=== PATIENT | female | born 1990 | race Caucasian/White ===

== ENCOUNTER 2016-10-24 21:12 | Emergency (ER) | payer SELFPAY ==
[~2016-10-24] VITALS: Ht 167.6 cm; Wt 63.5 kg
[~2016-10-24 21:12] MED LIST: IBUP-1060 PO; METR500T PO; SULF1TAB24 PO
[2016-10-24 21:42] LABS: BILIRUBIN,URINE NEGATIVE (NEG); GLUCOSE,URINE NEGATIVE (NEG); NITRITE,URINE NEGATIVE (NEG); PH,URINE 5.5; PROTEIN,URINE NEGATIVE (NEG-TRACE); UROBILINOGEN,URINE 0.2 mg/dL (0.2 mg/dL)
[2016-10-24 21:53] LABS: BACTERIA,URINE FEW /HPF (0-FEW); SQUAMOUS EPITHELIAL CELL,UR FEW /LPF
[2016-10-24] MEDS: IV NORMAL SALINE 1000ML BAG 1,000 ML IV SCH ×2 (22:20→23:26)
[2016-10-24 22:22] LABS: BASO % 0 % (0-3); EOS % 0 % (0-3); HEMATOCRIT 41.5 % (36.0-47.0); HEMOGLOBIN 14.2 g/dL (12.0-15.5); LYMPH # 0.5 x10^3/uL (1.0-4.8); LYMPH % 5 % (24-48); MEAN CORPUSCULAR HEMOGLOBIN 32 pg (25-35); MEAN CORPUSCULAR HGB CONC 34 g/dL (31-37); MEAN CORPUSCULAR VOLUME 92 fL (79-100); MONO % 8 % (0-9); NEUT % 87 % (31-73); PLATELET COUNT 161 x10^3/uL (140-400); RED BLOOD COUNT 4.51 x10^6/uL (3.50-5.40); RED CELL DISTRIBUTION WIDTH 12.6 % (11.5-14.5); WHITE BLOOD COUNT 10.3 x10^3/uL (4.0-11.0)
[2016-10-24 22:42] LABS: CALCIUM 7.7 mg/dL (8.5-10.1); CREATININE 0.9 mg/dL (0.6-1.0); GFR 75.1
[2016-10-24 22:47] LABS: ALBUMIN 3.9 g/dL (3.4-5.0); ALBUMIN/GLOBULIN RATIO 1.1 (1.0-1.7); TOTAL BILIRUBIN 1.3 mg/dL (0.2-1.0); TOTAL PROTEIN 7.3 g/dL (6.4-8.2)
[2016-10-24 22:59] LABS: PLT ESTIMATE ADEQUATE (ADEQUATE)
[2016-10-24] MEDS ORDERED: ACETAMINOPHEN 500 MG TABLET PO ONE (23:00)
[2016-10-24] MEDS ORDERED: KETOROLAC 15 MG/ML VIAL. IV ONE (23:30)
[2016-10-24] MEDS ORDERED: IV NORMAL SALINE 1000ML BAG 1,000 ML IV ONE (23:30)
[2016-10-24 23:59] VITALS: BP 107/56
[2016-10-25] MEDS ORDERED: DEXAMETHASONE SOD PHOS 4 MG/ML VIAL IV ONE (01:00)
[2016-10-25] MEDS ORDERED: PHENAZOPYRIDINE 200 MG TABLET. PO ONE (01:00)
[2016-10-25] MEDS ORDERED: CEPHALEXIN 250 MG CAPSULE. PO ONE (01:00)
[2016-10-25] MEDS ORDERED: DEXAMETHASONE SOD PHOS 4 MG/ML VIAL PO ONE (01:15)
[2016-10-25] MEDS ORDERED: PHEN-318 PO (01:22)
[2016-10-25] MEDS ORDERED: CEPH500C PO (01:22)
--- NOTE | 2016-10-25 02:50 | ED.ADGEN ---
Past Medical History Past Medical History: No Pertinent History Past Surgical History: Other Additional Past Surgical Histo: falliopen tube removed Additional Information: PT REPORTS USING NICODERM PATCH. Alcohol Use: None Drug Use: None Adult General Chief Complaint Chief Complaint: FLANK PAIN HPI HPI Patient is a 26 year old woman, with no significant past no history, who presents to the emergency department with a complaint of sore throat, myalgias, flank pain, fever, that began today. Patient denies any nausea or vomiting, is complaining of pain in her "kidneys" bilaterally, also throughout her back and extremities, no neck pain, no headache, no ear pain, noted be febrile at 101 in the ED orally. Patient states that she does have a sick contact her son who was diagnosed with strep throat, denies any recent travel or surgery, any vomiting, any diarrhea, is denying any urinary complaints. Denies any other sick contacts or injuries, any hematuria, any dysuria, any discharge from the vagina, any concerns for STI exposures. Appears uncomfortable and flushed in the emergency department. Review of Systems Review of Systems Constitutional: Fever, no chills. Eyes: Denies change in visual acuity. [] HENT: Denies nasal congestion or sore throat. [] Respiratory: Denies cough or shortness of breath. [] Cardiovascular: Denies chest pain or edema. [] GI: Denies abdominal pain, nausea, vomiting, bloody stools or diarrhea. [] : Denies dysuria. Complaining of bilateral flank pain, also musculoskeletal pain throughout the back and extremities. Musculoskeletal: Musculoskeletal pain to the back and extremities.. [] Integument: Denies rash. [] Neurologic: Denies headache, focal weakness or sensory changes. [] Endocrine: Denies polyuria or polydipsia. [] Lymphatic: Denies swollen glands. [] Psychiatric: Denies depression or anxiety. [] Current Medications Current Medications Current Medications Medications (Trade) Dose Ordered Sig/Jimy Start Time Stop Time Status Last Admin Dose Admin Acetaminophen (Tylenol) 1,000 mg 1X ONCE 10/24/16 23:00 10/24/16 23:01 DC 10/24/16 22:52 1,000 MG Cephalexin HCl (Keflex) 500 mg 1X ONCE 10/25/16 01:00 10/25/16 01:01 DC 10/25/16 01:07 500 MG Dexamethasone Sodium Phosphate (Decadron) 4 mg 1X ONCE 10/25/16 01:15 10/25/16 01:16 DC 10/25/16 01:12 4 MG Ketorolac Tromethamine (Toradol) 10 mg 1X ONCE 10/24/16 23:30 10/24/16 23:31 DC 10/24/16 23:26 10 MG Phenazopyridine HCl (Pyridium) 200 mg 1X ONCE 10/25/16 01:00 10/25/16 01:01 DC 10/25/16 01:07 200 MG Sodium Chloride 1,000 ml @ 1,000 mls/hr 1X ONCE 10/24/16 23:30 10/25/16 00:29 DC 10/24/16 23:26 1,000 MLS/HR Allergies Allergies Allergies Coded Allergies Type Severity Reaction Last Updated Verified No Known Drug Allergies 02/15/14 No Physical Exam Physical Exam Constitutional: Well developed, well nourished, patient is flushed in appearance , appears uncomfortable, complaining of pain in her back. [] HENT: Normocephalic, atraumatic, bilateral external ears normal, oropharynx moist, patient with fragile erythema bilaterally, and exudates noted bilaterally , key in nature, no asymmetry evidence of peritonsillar abscess, no brawny edema or other involvement of the mucosa or tongue or teeth, consistent with pharyngitis, nose normal. [] Eyes: PERRLA, EOMI, conjunctiva normal, no discharge. [] Neck: Normal range of motion, no tenderness, supple, no stridor. [] Cardiovascular:Heart rate regular rhythm, no murmur, S1, S2, no rubs or gallops. [] Lungs & Thorax: Bilateral breath sounds clear to auscultation, no wheezing, rhonchi, rales. No chest wall crepitus or tenderness. Abdomen: Bowel sounds normal, soft, no tenderness, no rebound, rigidity, no guarding, no masses, no pulsatile masses. [] Skin: Warm, dry, no erythema, no rash. [] Back: No midline or paraspinal tenderness, no CVA tenderness. [] Extremities: No tenderness, no cyanosis, no clubbing, ROM intact, no edema. Neurologic: Alert and oriented X 3, normal motor function, normal sensory function, no focal deficits noted. [] Psychologic: Affect normal, judgement normal, mood normal. [] Current Patient Data Vital Signs Vital Signs Date Time Temp Pulse Resp B/P (MAP) Pulse Ox O2 Delivery O2 Flow Rate FiO2 10/24/16 23:59 88 20 107/56 (73) 99 Room Air 10/24/16 21:20 101.9 101.9 Lab Values Laboratory Tests Test 10/24/16 21:00 10/24/16 22:10 Urine Collection Type Unknown Urine Color Yellow Urine Clarity Clear Urine pH 5.5 Urine Specific [place] 1.025 Urine Protein Negative mg/dL (NEG-TRACE) Urine Glucose (UA) Negative mg/dL (NEG) Urine Ketones (Stick) >=80 mg/dL (NEG) Urine Blood Moderate (NEG) Urine Nitrite Negative (NEG) Urine Bilirubin Negative (NEG) Urine Urobilinogen Dipstick 0.2 mg/dL (0.2 mg/dL) Urine Leukocyte Esterase Small (NEG) Urine RBC 11-20 /HPF (0-2) Urine WBC 11-20 /HPF (0-4) Urine Squamous Epithelial Cells Few /LPF Urine Bacteria Few /HPF (0-FEW) Urine Mucus Slight /LPF White Blood Count 10.3 x10^3/uL (4.0-11.0) Red Blood Count 4.51 x10^6/uL (3.50-5.40) Hemoglobin 14.2 g/dL (12.0-15.5) Hematocrit 41.5 % (36.0-47.0) Mean Corpuscular Volume 92 fL (79-100) Mean Corpuscular Hemoglobin 32 pg (25-35) Mean Corpuscular Hemoglobin Concent 34 g/dL (31-37) Red Cell Distribution Width 12.6 % (11.5-14.5) Platelet Count 161 x10^3/uL (140-400) Neutrophils (%) (Auto) 87 % (31-73) H Lymphocytes (%) (Auto) 5 % (24-48) L Monocytes (%) (Auto) 8 % (0-9) Eosinophils (%) (Auto) 0 % (0-3) Basophils (%) (Auto) 0 % (0-3) Neutrophils # (Auto) 9.0 x10^3uL (1.8-7.7) H Lymphocytes # (Auto) 0.5 x10^3/uL (1.0-4.8) L Monocytes # (Auto) 0.8 x10^3/uL (0.0-1.1) Eosinophils # (Auto) 0.0 x10^3/uL (0.0-0.7) Basophils # (Auto) 0.0 x10^3/uL (0.0-0.2) Segmented Neutrophils % 92 % (35-66) H Lymphocytes % 4 % (24-48) L Monocytes % 4 % (0-10) Platelet Estimate Adequate (ADEQUATE) Sodium Level 137 mmol/L (136-145) Potassium Level 4.0 mmol/L (3.5-5.1) Chloride Level 102 mmol/L (98-107) Carbon Dioxide Level 23 mmol/L (21-32) Anion Gap 12 (6-14) Blood Urea Nitrogen 10 mg/dL (7-20) Creatinine 0.9 mg/dL (0.6-1.0) Estimated GFR (Cockcroft-Gault) 75.1 BUN/Creatinine Ratio 11 (6-20) Glucose Level 80 mg/dL (70-99) Calcium Level 7.7 mg/dL (8.5-10.1) L Total Bilirubin 1.3 mg/dL (0.2-1.0) H Aspartate Amino Transferase (AST) 17 U/L (15-37) Alanine Aminotransferase (ALT) 22 U/L (14-59) Alkaline Phosphatase 93 U/L (46-116) Total Protein 7.3 g/dL (6.4-8.2) Albumin 3.9 g/dL (3.4-5.0) Albumin/Globulin Ratio 1.1 (1.0-1.7) Laboratory Tests 10/24/16 22:10 Laboratory Tests 10/24/16 22:10 EKG EKG Not indicated. Radiology/Procedures Radiology/Procedures Not indicated. [] Course & Med Decision Making Course & Med Decision Making Pertinent Labs and Imaging studies reviewed. (See chart for details) Patient's abdomen is soft and nontender, no CVA tenderness noted, focal tenderness or indications for imaging based on examination. Patient noted to be dehydrated, with greater than 80 ketones in the urine, also bacteria and white blood cells, but no nitrates. Patient with myalgias throughout her back, received acetaminophen in the ED, IV fluids, 2 L of normal saline, along with laboratory studies. No leukocytosis noted, no electrolyte abnormalities. as patient initially noted to have some hypotension on reevaluation, blood pressures dropping down to 90s over 60s, for a single measurement, and then increasing to low 100s over 70s, I did discuss admission to the hospital for continued monitoring and treatment. Patient did decline, she states that at this time she is feeling much better. Patient ambulating without difficulty in the ED. Strep swab obtained in the ED and is positive. I did discuss use of intramuscular antibiotics in the ED, for treatment of strep throat, versus a course of ceftriaxone. Patient states to prefer the oral course. Patient given first dose of Keflex in the ED, 500 mg, along with Pyridium which she tolerated without issue. Also received first dose of Pyridium without issue. We did discuss concerning symptoms that would prompt return to the ED, importance of completing antibiotic course, patient is fully immunized. Patient agreeable with plan, given a 10 day course of Keflex, to be taken 4 times daily, along with Pyridium, to continue to use acetaminophen and ibuprofen as directed on the packaging, to stay well-hydrated, and to return to the ED for concerning symptoms as discussed. Patient discharged home in stable condition, with plan as above. Dragon Disclaimer Dragon Disclaimer This electronic medical record was generated, in whole or in part, using a voice recognition dictation system. Departure Impression: Primary Impression: UTI (lower urinary tract infection) Additional Impression: Strep pharyngitis Disposition: 01 HOME, SELF-CARE Condition: IMPROVED Scripts Phenazopyridine Hcl (PYRIDIUM) 200 Mg Tablet 200 MG PO TID Y for bladder spasm, #9 TAB Prov: LISA BAIRD DO 10/25/16 Cephalexin (CEPHALEXIN) 500 Mg Capsule 1 CAP PO QID, #40 CAP Prov: LISA BAIRD DO 10/25/16 Problem Qualifiers LISA BAIRD DO Oct 25, 2016 02:50
[2016-10-25 07:23] LABS: NEGATIVE OBC STREP NEG; POSITIVE OBC STREP POS
== END 2016-10-25 01:31 | disposition home or self-care (01) ==
LOC: ER 21:12
DX: J02.0 Streptococcal pharyngitis (principal); N39.0 Urinary tract infection, site not specified; Z90.721 Acquired absence of ovaries, unilateral
CPT/HCPCS: 36415; 80053; 81001; 81025; 85007; 85027; 87880; 96361; 96374; 99285; J1100; J1885; J7030

== ENCOUNTER → 2020-11-15 | Outpatient (CLI) | payer BC ==
[~2020-11-15] MED LIST changes: +CEPH500C PO; +PHEN-318 PO
== END ==
LOC: LAB 14:05
PROVIDERS: ATTEND Obstetrics & Gynecology
DX: N93.9 Abnormal uterine and vaginal bleeding, unspecified (principal)
CPT/HCPCS: 36415; 84702

== ENCOUNTER → 2020-11-17 | Outpatient (CLI) | payer BC | LOC: LAB 13:52 | PROVIDERS: ATTEND Obstetrics & Gynecology | DX: N93.9 Abnormal uterine and vaginal bleeding, unspecified (principal) | CPT/HCPCS: 36415; 84702 ==